=== PATIENT | female | born 1980 | race Caucasian/White ===

== ENCOUNTER 2018-06-27 13:49 | Emergency (ER) | payer MEDICAID ==
[~2018-06-27] VITALS: Ht 154.9 cm; Wt 90.7 kg
[2018-06-27 13:59] VITALS: BP 103/65
--- NOTE | 2018-06-27 14:06 | NUR ---
PATIENT WHEELCHAIR ASSISTED TO BED 5
--- NOTE | 2018-06-27 14:09 | NUR ---
37YO F BIB FOR R KNEE PAIN S/P FALL X1DAU AGO. PT STATE THAT SHE SLIPPED ON A [employer] AT [employer] ON R KNEE. ABBRATION NOTED TO KNEECAP, BLEEDING UNDER CONTROL, WITH BRUSING AND SWELLING AROUD KNEE. ROM IS INTACT. BRISK CAP REFILL AND GOOD SENSATION BELOW INJURY, NO DEFORMITY NOTED. PAIN 9/10. ER MD MADE AWARE. WILL CONTINUE TO MONITOR. PT POSITIONED FOR COMFORT.
--- NOTE | 2018-06-27 14:12 | NUR ---
Patient being evaluated by physician at bedside.
[2018-06-27] MEDS ORDERED: KETOROLAC 60 MG/2 ML VIAL IM ONE (14:15)
[2018-06-27] MEDS ORDERED: MORPHINE SULFATE 2 MG/ML SYR IM ONE (14:15)
--- NOTE | 2018-06-27 14:25 | NUR ---
XRAY AT BEDSIDE
--- NOTE | 2018-06-27 16:01 | NUR ---
EMT AT BEDSIDE
--- NOTE | 2018-06-27 16:25 | NUR ---
PT RESTING IN BED IN NO APPEARENT DISTRESS. S/P KNEE IMMOBLIZER, BRISK CAP REFILL TO AFFECTED EXTREMITY, WITH GOOD SENSATION.
[2018-06-27 16:39] VITALS: BP 110/67
--- NOTE | 2018-06-27 16:39 | NUR ---
Patient discharged with v/s stable. Written and verbal after care instructions given and explained. Patient alert, oriented and verbalized understanding of instructions. Ambulatory with steady gait. All questions addressed prior to discharge. ID band removed. Patient advised to follow up with PMD. Rx of VOLTAREN, TRAMADOL given. Patient educated on indication of medication including possible reaction and side effects. Opportunity to ask questions provided and answered.
== END 2018-06-27 16:39 | disposition home or self-care (01) ==
LOC: MED 13:49
DX: S80.01XA Contusion of right knee, initial encounter (principal); W01.0XXA Fall on same level from slipping, tripping and stumbling without subsequent striking against object, initial encounter; Y93.89 Activity, other specified; Y92.89 Other specified places as the place of occurrence of the external cause; Y99.8 Other external cause status
CPT/HCPCS: 29505; 73562; 96372; 99284; J1885; J2270

== ENCOUNTER 2018-08-15 00:52 | Emergency (ER) | payer MEDICAID ==
[~2018-08-15] VITALS: Ht 154.9 cm; Wt 92.6 kg
[2018-08-15 01:00] VITALS: BP 123/78
--- NOTE | 2018-08-15 01:16 | NUR ---
PT BIB FAMILY C/O UTI S/S, W/D X 1 WEEK. DENIES N/V/D; SKIN IS PINK/WARM/DRY; AAOX4 WITH EVEN AND STEADY GAIT; LUNGS CLEAR BL; HR EVEN AND REGULAR; PT DENIES ANY FEVER, CP, SOB, OR COUGH AT THIS TIME; PATIENT STATES PAIN OF 8/10 AT THIS TIME; VSS; PATIENT POSITIONED FOR COMFORT; HOB ELEVATED; BEDRAILS UP X2; BED DOWN. ER MD MADE AWARE OF PT STATUS.
[2018-08-15] MEDS ORDERED: KETOROLAC 60 MG/2 ML VIAL IM ONE (03:30)
[2018-08-15] MEDS ORDERED: LORazepam 1 MG TAB PO ONE (03:30)
[2018-08-15] MEDS ORDERED: METOCLOPRAMIDE 10 MG/2 ML INJ VIAL IM ONE (03:30)
--- NOTE | 2018-08-15 03:45 | NUR ---
PT C/O CHEST PAIN AND NAUSEA. NOTIFIED
--- NOTE | 2018-08-15 04:08 | NUR ---
EKG PERFORMED AT BEDSIDE. PT COVERED IN GOWN AND BLANKET DURING PROCEDURE WITH FAMILY MEMBER PRESENT
[2018-08-15 04:21] LABS: BASOPHILS % (AUTO) 0.2 % (0.0-2.0); HEMATOCRIT 36.8 % (36-48); HEMOGLOBIN 12.2 g/dL (12.0-16.0); LYMPHOCYTES % (AUTO) 10.2 % (20.5-51.1); MEAN CORPUSCULAR HEMOGLOBIN 28 pg (27-31); MEAN CORPUSCULAR HGB CONC 33 g/dL (33-37); MEAN CORPUSCULAR VOLUME 83.2 fL (80-94); MONOCYTES # (AUTO) 0.4 K/uL (0.8-1.0); MONOCYTES % (AUTO) 3.9 % (1.7-9.3); NEUTROPHILS # (AUTO) 8.4 K/uL (1.8-7.7); NEUTROPHILS % (AUTO) 85.7 % (42.2-75.2); PLATELET COUNT (AUTO) 310 K/uL (140-450); RED BLOOD CELL COUNT(AUTO) 4.43 MIL/uL (4.20-5.40); RED CELL DISTRIBUTION WIDTH 14.2 % (11.6-13.7); WHITE BLOOD COUNT (AUTO) 9.8 K/uL (4.8-10.8)
--- NOTE | 2018-08-15 04:23 | NUR ---
PT LEFT FOR CT
--- NOTE | 2018-08-15 04:30 | NUR ---
PT STATED SHE FEELS BETTER
[2018-08-15 04:39] LABS: PROTHROMBIN TIME 9.2 secs (10.8-13.4)
[2018-08-15 04:41] LABS: ANION GAP 11.1 (8-16); CARBON DIOXIDE 24.2 mmol/L (21-32); CREATININE 0.6 mg/dL (0.6-1.3); POTASSIUM 4.3 mmol/L (3.5-5.1)
[2018-08-15 04:42] LABS: TOTAL BILIRUBIN 0.2 mg/dL (0.0-1.0)
[2018-08-15 04:56] LABS: THYROID STIMULATING HORMONE 2.3 uIU/mL (0.34-3.74)
[2018-08-15 05:20] LABS: CREATINE KINASE MB 1.4 ng/mL (0-3.6)
--- NOTE | 2018-08-15 06:00 | NUR ---
PT SLEEPING, NO S/S OF RESPIRATORY DISTRESS OR DISCOMFORT NOTED.
[2018-08-15 06:38] VITALS: BP 129/77
--- NOTE | 2018-08-15 06:39 | NUR ---
Patient discharged with v/s stable. Written and verbal after care instructions given and explained. Patient alert, oriented and verbalized understanding of instructions. Ambulatory with steady gait. All questions addressed prior to discharge. ID band removed. Patient advised to follow up with PMD. Rx of MIRIAM DEY given. Patient educated on indication of medication including possible reaction and side effects. Opportunity to ask questions provided and answered.
== END 2018-08-15 06:38 | disposition home or self-care (01) ==
LOC: MED 00:52
DX: R10.9 Unspecified abdominal pain (principal); R35.0 Frequency of micturition; R00.2 Palpitations
CPT/HCPCS: 36415; 71045; 74176; 80053; 81025; 82550; 82553; 83690; 83880; 84443; 84484; 85025; 85379; 85384; 85610; 85730; 86886; 86900; 86901; 93005; 96372; 99285; J1885; J2765

== ENCOUNTER 2018-12-25 22:37 | Emergency (ER) | payer MEDICAID ==
[~2018-12-25] VITALS: Ht 154.9 cm; Wt 95.3 kg
[2018-12-25 22:40] VITALS: BP 135/88
--- NOTE | 2018-12-25 22:45 | NUR ---
PATIENT PRESENTS TO ED WITH RIGHT FLANK PAIN. PT STATES INTERMITTENT PAIN X3 MONTHS. DENIES N/V/D; SKIN IS PINK/WARM/DRY; AAOX4 WITH EVEN AND STEADY GAIT; LUNGS CLEAR BL; HR EVEN AND REGULAR; PT DENIES ANY FEVER, CP, SOB, OR COUGH AT THIS TIME; PATIENT STATES PAIN OF 8/10 AT THIS TIME; VSS; PATIENT POSITIONED FOR COMFORT; HOB ELEVATED; BEDRAILS UP X2; BED DOWN. ER MD MADE AWARE OF PT STATUS. PMH: DENIES RX: DENIES
--- NOTE | 2018-12-25 22:47 | NUR ---
PT TAKEN TO BED 4
--- NOTE | 2018-12-25 22:51 | NUR ---
Dr. Franklin evaluating patient at bedside.
[2018-12-25] MEDS ORDERED: DIAZEPAM 5 MG TAB PO ONE (23:00)
--- NOTE | 2018-12-25 23:18 | NUR ---
PT RETURN FROM XRAY
[2018-12-26 00:53] LABS: ANION GAP 10.2 (8-16); CARBON DIOXIDE 25.6 mmol/L (21-32); CREATININE 0.6 mg/dL (0.6-1.3); POTASSIUM 3.8 mmol/L (3.5-5.1)
--- NOTE | 2018-12-26 01:11 | NUR ---
Patient discharged with v/s stable. Written and verbal after care instructions given and explained. Patient alert, oriented and verbalized understanding of instructions. Ambulatory with steady gait. All questions addressed prior to discharge. ID band removed. Patient advised to follow up with PMD. Rx of Naprosyn, and Valium given. Patient educated on indication of medication including possible reaction and side effects. Opportunity to ask questions provided and answered.
[2018-12-26 06:08] VITALS: BP 128/79
== END 2018-12-26 01:11 | disposition home or self-care (01) ==
LOC: MED 22:37
DX: R10.9 Unspecified abdominal pain (principal); R21 Rash and other nonspecific skin eruption
CPT/HCPCS: 36415; 71046; 80048; 81002; 81025; 85379; 99284; Q0092

== ENCOUNTER 2019-01-06 14:25 | Emergency (ER) | payer MEDICAID ==
[~2019-01-06] VITALS: Ht 154.9 cm; Wt 92.5 kg
[2019-01-06 14:32] VITALS: BP 134/72
--- NOTE | 2019-01-06 14:32 | NUR ---
PT AMBULATES TO BED 6
--- NOTE | 2019-01-06 14:45 | NUR ---
PT BIB SELF C/O MIDSTERNAL CHEST PRESSURE 8/10 NON RADIATING. DENIES NVD/SOB AT THIS TIME. STATES SHE WAS GIVEN TWO DIFFERENT ANTIBIOTICS TO TREAT HER COLD WITHOUT RELIEF. RESPIRATIONS E/U, LUNGS BLEAR BILAT ALL LOBES. SINUS RHYTHM ON MONITOR. PT DENIES N/V/D; SKIN IS INTACT, PINK/WARM/DRY; AAOX4, PERRL, WITH EVEN AND STEADY GAIT; LUNGS CLEAR BL, BREATHING UNLABORED; HR EVEN AND REGULAR, BL PERIPHERAL PULSES PRESENT; BS ACTIVE X4, NO TENDERNESS TO PALPATION, NO HEPATOSPLENOMEGALLY PALPATED, RESONANT TO PERCUSSION; VSS; PATIENT POSITIONED FOR COMFORT; HOB ELEVATED; BEDRAILS UP X2; BED DOWN, PLACED ON FULL MONITOR.
[2019-01-06] MEDS ORDERED: AZIT250T3 PO (14:55)
[2019-01-06] MEDS ORDERED: IBUP-1842 PO (14:55)
[2019-01-06] MEDS ORDERED: BENZ-196 PO (14:55)
[2019-01-06] MEDS ORDERED: IPRATROPIUM 0.02% 0.5 MG/2.5 ML NEBU INH ONE (15:10)
[2019-01-06] MEDS ORDERED: predniSONE 20 MG TAB PO ONE (15:10)
[2019-01-06] MEDS ORDERED: ALBUTEROL 0.083% 2.5 MG/3 ML NEBU INH ONE (15:10)
--- NOTE | 2019-01-06 15:20 | NUR ---
RT AT BEDSIDE
--- NOTE | 2019-01-06 15:20 | NUR ---
ADMITTING DX: CHEST PAIN PATIENT DENIES ASTHMA/COPD AWAKE AND ALERT VERBALLY RESPONSIVE EDUCATION PROVIDED TO PATIENT WITH ACKNOWLEDGEMENT ON [facility] THERAPY AND RESPIRATORY DRUGS THERAPY GIVEN ORDERED ENCOURAGED PATIENT FOR DEEP BREATHING DURING THERAPY
[2019-01-06 16:35] VITALS: BP 123/65
--- NOTE | 2019-01-06 16:36 | NUR ---
Patient discharged with v/s stable. Written and verbal after care instructions given and explained. Patient alert, oriented and verbalized understanding of instructions. Ambulatory with steady gait. All questions addressed prior to discharge. ID band removed. Patient advised to follow up with PMD. Rx of TESSALON, ALBUTEROL, AND PREDNISONE given. Patient educated on indication of medication including possible reaction and side effects. Opportunity to ask questions provided and answered.
--- NOTE | 2019-01-06 16:38 | NUR ---
PT DENIES CHEST PAIN AT THIS TIME.
== END 2019-01-06 16:38 | disposition home or self-care (01) ==
LOC: MED 14:25
DX: J40 Bronchitis, not specified as acute or chronic (principal); R51 Headache; Z88.1 Allergy status to other antibiotic agents; Z79.1 Long term (current) use of non-steroidal anti-inflammatories (NSAID)
CPT/HCPCS: 71045; 93005; 94640; 99283; J7512; J7613; J7644; Q0092

== ENCOUNTER 2019-03-27 11:44 | Emergency (ER) | payer MEDICAID ==
[~2019-03-27] VITALS: Ht 154.9 cm; Wt 88.5 kg
[~2019-03-27 11:44] MED LIST: AZIT250T3 PO; BENZ-196 PO; IBUP-1842 PO
[2019-03-27 12:03] VITALS: BP 123/80
--- NOTE | 2019-03-27 12:10 | NUR ---
PT C/O PALPITATIONS, BURNING SENSATION CHEST PAIN, SOB, UPPER BACK KATY, BOTH ARM HEAVINESS, AND NAUSEA FOR 2 DAYS. PT ALSO C/O RIGHT-SIDED HEADACHE FOR 2 MONTHS. DENIES V/D; SKIN IS PINK/WARM/DRY; AAOX4 WITH EVEN AND STEADY GAIT; LUNGS CLEAR BL; HR EVEN AND REGULAR; PT DENIES ANY FEVER OR COUGH AT THIS TIME; PATIENT STATES CHEST PAIN OF 8/10 AND HEADACHE 7/10 AT THIS TIME; VSS; PATIENT POSITIONED FOR COMFORT; HOB ELEVATED; BEDRAILS UP X1; BED DOWN. ER MD MADE AWARE OF PT STATUS. IS AT BEDSIDE.
[2019-03-27 12:55] LABS: BASOPHILS % (AUTO) 0.3 % (0.0-2.0); HEMATOCRIT 36.1 % (36-48); HEMOGLOBIN 12.2 g/dL (12.0-16.0); LYMPHOCYTES # (AUTO) 1.3 K/uL (2.5-16.5); LYMPHOCYTES % (AUTO) 13.4 % (20.5-51.1); MEAN CORPUSCULAR HEMOGLOBIN 28 pg (27-31); MEAN CORPUSCULAR HGB CONC 34 g/dL (33-37); MEAN CORPUSCULAR VOLUME 83.9 fL (80-94); MONOCYTES # (AUTO) 0.4 K/uL (0.8-1.0); MONOCYTES % (AUTO) 4.5 % (1.7-9.3); NEUTROPHILS # (AUTO) 7.8 K/uL (1.8-7.7); NEUTROPHILS % (AUTO) 81.8 % (42.2-75.2); PLATELET COUNT (AUTO) 302 K/uL (140-450); RED BLOOD CELL COUNT(AUTO) 4.31 MIL/uL (4.20-5.40); RED CELL DISTRIBUTION WIDTH 13.6 % (11.6-13.7); WHITE BLOOD COUNT (AUTO) 9.5 K/uL (4.8-10.8)
[2019-03-27] MEDS ORDERED: NACL 0.9% 2,000 ML IV SCH (12:55)
[2019-03-27] MEDS ORDERED: PIPERACILLIN/TAZOBACTAM 3.375 GM in DEXT 5% MINI-BAG PLUS 50 ML IV ONE (12:55)
[2019-03-27 12:58] LABS: APPEARANCE,URINE CLOUDY (CLEAR); BILIRUBIN,URINE NEGATIVE (NEGATIVE); BLOOD, URINE 3+ (NEGATIVE); COLOR,URINE RED (YELLOW); LEUKOCYTE ESTERASE ,URINE 1+ (NEGATIVE); NITRITE, URINE POSITIVE (NEGATIVE); UGLUCOSE NEGATIVE (NEGATIVE)
[2019-03-27 13:00] LABS: RBC,URINE TOO NUMEROUS TO COUN /HPF (0-5)
[2019-03-27 13:08] LABS: ANION GAP 12.4 (8-16); CARBON DIOXIDE 24.7 mmol/L (21-32); CREATININE 0.6 mg/dL (0.6-1.3); POTASSIUM 4.1 mmol/L (3.5-5.1); PROTHROMBIN TIME 10.4 secs (10.8-13.4)
[2019-03-27 13:13] LABS: TOTAL BILIRUBIN 0.6 mg/dL (0.0-1.0)
[2019-03-27 13:14] LABS: BILIRUBIN,DIRECT 0.2 mg/dL (0.0-0.3); TOTAL BILIRUBIN 0.5 mg/dL (0.0-1.0)
--- NOTE | 2019-03-27 13:17 | NUR ---
Arleen livingston in [facility] - 03/27/19 at 1714 by KEISHA surgicell applied to area
[2019-03-27 13:36] LABS: FREE T4 (FREE THYROXINE) 1.15 ng/dL (0.76-1.46)
[2019-03-27] MEDS ORDERED: PIPERACILLIN/TAZOBACTAM 3.375 GM VIAL IV ONE (13:41)
[2019-03-27] MEDS ORDERED: ALPRAZolam 0.5 MG TAB PO ONE (16:25)
--- NOTE | 2019-03-27 16:30 | NUR ---
REPORT GIVEN TO MICHAEL VILLALOBOS, [place]. ([phone])
--- NOTE | 2019-03-27 16:45 | NUR ---
PT IS WAITING FOR BEING TRANSFERED AND GIVEN XANAX. PT IS STILL ANXIOUS. IS AT BEDSIDE.
[2019-03-27 16:49] VITALS: BP 135/84
--- NOTE | 2019-03-27 16:50 | NUR ---
PT IS BEING TRANSFERED TO [place], REPORT GIVEN TO SEPIDEH BETH.
--- NOTE | 2019-03-27 16:51 | NUR ---
[facility] at bedside for transfer.
== END 2019-03-27 16:52 | disposition short-term general hospital (02) ==
LOC: MED 11:44
DX: I21.4 Non-ST elevation (NSTEMI) myocardial infarction (principal); N39.0 Urinary tract infection, site not specified; M35.3 Polymyalgia rheumatica; G89.29 Other chronic pain; R51 Headache
CPT/HCPCS: 36415; 36600; 71045; 80053; 80076; 81001; 81025; 82803; 83605; 83690; 83735; 83880; 84439; 84443; 84479; 84484; 85025; 85379; 85610; 87040; 87086; 96365; 99285; J2543; J7060; Q0092